=== PATIENT | female | born 2000 | race Hispanic/Latino ===

== ENCOUNTER 2018-07-08 08:20 | Outpatient (CLI) | payer OTHER ==
--- NOTE | 2018-07-08 10:13 | ULT ---
ULTRASOUND OBSTETRICAL COMPLETE: DATE: 07/08/2018. HISTORY: A 18-year-old female for evaluation of anatomy, size, and dates. FINDINGS: number: adamson. lie: variable. Maternal cervix: 5.5 cm in length and closed. Placenta: posterior. No placenta previa. Amniotic fluid volume: 11.5 cm. heart rate: 142 b.p.m. The following anatomy is visualized, with no evidence of anomalies: Head, lateral ventricles, cerebellum, nose and lips, spine, upper limbs, lower limbs, four chamber he art, umbilical cord, cord insertion, stomach, kidneys, and bladder. biometry: Head circumference (HC): 19.0 cm 21 w 3 d Biparietal diameter (BPD): 5.1 cm 21 w 3 d Abdominal circumference (AC): 16.4 cm 21 w 4 d Femur length (FL): 3.5 cm 21 w 2 d Average ultrasound age (AUA): 21 w 3 d Estimated date of delivery (KRIS): 11/15/2018. Estimated weight (EFW): 413 g +/- 60 g. IMPRESSION: 1. Live second trimester intrauterine gestation. 2. Estimated gestational age of 21 weeks, 3 days. 3. lie variable. 4. No anatomical abnormalities. jn [] POS: [facility]
== END 2018-07-08 08:21 | disposition home or self-care (01) ==
LOC: BICULT 08:20
PROVIDERS: ATTEND Family Medicine
DX: Z34.02 Encounter for supervision of normal first pregnancy, second trimester (principal); Z3A.21 21 weeks gestation of pregnancy
CPT/HCPCS: 76805

== ENCOUNTER 2018-11-04 12:18 | Inpatient (IN) | payer OTHER ==
[2018-11-09] MEDS: Misoprostol 100 MCG TAB PO SCH
[2018-11-09] MEDS ORDERED: Misoprostol 200 MCG TAB PR PRN (23:00)
[2018-11-09] MEDS ORDERED: Ibuprofen 800 MG TAB PO PRN (23:00)
[2018-11-09] MEDS ORDERED: Lidocaine 1% (PF) 30 ML VIAL SC PRN (23:00)
[2018-11-09] MEDS ORDERED: NS / Oxytocin 40 units/1000ml 1,000 ML IV PRN (23:00)
[2018-11-09] MEDS ORDERED: Diphenoxylate HCl/Atropine Tablet PO PRN (23:00)
[2018-11-09] MEDS ORDERED: Ondansetron PF 4 MG/2 ML Vial IVP PRN (23:00)
[2018-11-09] MEDS ORDERED: Butorphanol Tartrate 1 MG/ML VIAL SLOW IVP PRN (23:00)
[2018-11-09] MEDS: NS w/ Oxytocin 10 units 500 ML IV SCH (23:00)
[2018-11-09] MEDS ORDERED: HYDROcodone/Acetaminophen 5/325 mg Tablet PO PRN (23:00)
[2018-11-09] MEDS ORDERED: NS w/ Oxytocin 10 units 500 ML IV SCH (23:00)
[2018-11-09] MEDS ORDERED: Methylergonovine 0.2 MG/ML VIAL IM PRN (23:00)
[2018-11-09] MEDS ORDERED: Carboprost 250 MCG/ML AMP IM PRN (23:00)
[2018-11-09 23:17] VITALS: BMI 25.6
[2018-11-09] MEDS: Lactated Ringer's 1,000 ML IV SCH (23:35)
[2018-11-09 23:56] LABS: Hemoglobin 12.7 g/dL (12.0-16.0); Mean Corpuscular HGB CONC 34.1 g/dL (32.0-36.0); Mean Corpuscular Hemoglobin 30.9 pg (25.0-35.0); Mean Corpuscular Volume 90.7 fL (78.0-98.0); Mean Platelet Volume 8.8 fL (7.4-10.4); Platelet Count 270 thou/uL (130-400); RBC Distribution Width 11.2 % (11.5-14.5); Red Blood Cell (RBC) Count 4.11 mill/uL (4.00-5.20); White Blood Cell (WBC) Count 8.4 thou/uL (4.8-10.8)
[2018-11-10 00:27] LABS: Syphilis Antibody Nonreactive (Nonreactive); Syphilis Antibody Index 0.04 S/CO (<1.00 Non-Reactive)
[2018-11-10 00:28] LABS: HBSAg Index 0.23 S/CO (0-0.99); Hep B Surf Ag Non-Reactive S/CO (NonReactive)
[2018-11-10] MEDS: Misoprostol 100 MCG TAB PO SCH ×2 (04:30→10:16)
[2018-11-10] MEDS: NS w/ Oxytocin 10 units 500 ML IV SCH (08:18)
[2018-11-10] MEDS ORDERED: Fentanyl 4 mcg/Bup 0.1% Cadd 100 ML ONE (08:42)
[2018-11-10] MEDS ORDERED: Lactated Ringer's 500 ML IV PRN (09:49)
[2018-11-10] MEDS ORDERED: Ondansetron PF 4 MG/2 ML Vial IVP PRN ×2 (09:49→14:41)
[2018-11-10] MEDS ORDERED: Promethazine HCl 25 MG/ML VIAL IM PRN (09:49)
[2018-11-10] MEDS ORDERED: ePHEDrine/0.9% NaCl/PF SYRINGE 50 mg/10 ml SLOW IVP PRN (09:49)
[2018-11-10] MEDS ORDERED: Acetaminophen 325 MG TAB PO PRN (09:49)
[2018-11-10] MEDS ORDERED: Naloxone HCl 0.4 mg/ml Vial IVP PRN ×2 (09:49)
[2018-11-10] MEDS ORDERED: diphenhydrAMINE 50 MG/ML VIAL IVP PRN (09:49)
[2018-11-10] MEDS ORDERED: Eucerin (Mineral Oil/Petrolatum,White) 30 gm Jar TOP PRN (09:49)
[2018-11-10] MEDS: Lactated Ringer's 1,000 ML IV SCH (09:50)
[2018-11-10] MEDS ORDERED: Communication Order-Pharmacy FS SCH (10:00)
[2018-11-10] MEDS ORDERED: Fentanyl 4 mcg/Bupivacaine 0.1% Cassette 100 ML EPIDURAL SCH (10:00)
[2018-11-10] MEDS: NS / Oxytocin 40 units/1000ml 1,000 ML IV SCH ×2 (12:16→14:50)
[2018-11-10] MEDS ORDERED: Lanolin Ointment 7 GM TUBE TOP PRN (14:41)
[2018-11-10] MEDS ORDERED: HYDROcodone/Acetaminophen 5/325 mg Tablet PO PRN ×2 (14:41)
[2018-11-10] MEDS ORDERED: Preparation H Ointment 28 GM TUBE PR PRN (14:41)
[2018-11-10] MEDS ORDERED: Milk Of Magnesia 30 ML UDCUP PO PRN (14:41)
[2018-11-10] MEDS ORDERED: Bisacodyl 10 MG SUPP PR PRN (14:41)
[2018-11-10] MEDS ORDERED: Benzocaine/Menthol 20-0.5% 60 ML CAN TOP PRN (14:41)
[2018-11-10] MEDS ORDERED: diphenhydrAMINE 25 MG CAP PO PRN (14:41)
[2018-11-10] MEDS ORDERED: Bupivacaine/Epinephrine 0.25% 30 ML VIAL ONE (18:00)
[2018-11-10] MEDS: Ibuprofen 800 MG TAB PO SCH ×2 (20:10→20:45)
[2018-11-10] MEDS: Ferrous Sulfate 325 MG TAB PO SCH (20:11)
[2018-11-10] MEDS: Docusate Calcium (SURFAK) 240 MG CAP PO SCH (20:45)
[2018-11-10] MEDS ORDERED: Sodium Chloride 0.9% 10 ML ONE (22:15)
[2018-11-11] MEDS: Ibuprofen 800 MG TAB PO SCH ×2 (05:42→13:41)
[2018-11-11] MEDS: Ferrous Sulfate 325 MG TAB PO SCH ×2 (08:26→16:15)
[2018-11-11] MEDS: Docusate Calcium (SURFAK) 240 MG CAP PO SCH (09:09)
[2018-11-11 09:19] LABS: Hemoglobin 12.2 g/dL (12.0-16.0); Mean Corpuscular HGB CONC 34.2 g/dL (32.0-36.0); Mean Corpuscular Hemoglobin 31.1 pg (25.0-35.0); Mean Corpuscular Volume 90.9 fL (78.0-98.0); Mean Platelet Volume 8.4 fL (7.4-10.4); Platelet Count 235 thou/uL (130-400); RBC Distribution Width 11.4 % (11.5-14.5); Red Blood Cell (RBC) Count 3.93 mill/uL (4.00-5.20); White Blood Cell (WBC) Count 8.5 thou/uL (4.8-10.8)
[2018-11-12] MEDS: Ibuprofen 800 MG TAB PO SCH ×3 (00:29→14:31)
[2018-11-12] MEDS: Docusate Calcium (SURFAK) 240 MG CAP PO SCH ×2 (00:32→09:13)
[2018-11-12 08:24] VITALS: BP 88/51; TEMP 99
[2018-11-12] MEDS: Ferrous Sulfate 325 MG TAB PO SCH (09:12)
== END 2018-11-12 16:15 | disposition home or self-care (01) | DRG 807 ==
LOC: EDSTATUS 14:21 → L&D 11-09 22:38 → 3SW 11-10 23:35
PROVIDERS: ADMIT Family Medicine; ATTEND Family Medicine
PROC: 10E0XZZ Delivery of Products of Conception, External Approach (ICD-10-PCS; principal; 2018-11-09)
PROC: 0KQM0ZZ Repair Perineum Muscle, Open Approach (ICD-10-PCS; 2018-11-09)
DX: O71.82 Other specified trauma to perineum and vulva (principal); Z37.0 Single live birth; Z3A.40 40 weeks gestation of pregnancy
CPT/HCPCS: 36415; 51702; 85027; 86780; 86850; 86900; 86901; 87340; J0595